=== PATIENT | female | born 1950 | race Two or more races ===

== ENCOUNTER 2023-02-11 20:58 | Inpatient (IN) | payer OTHER ==
[~2023-02-11] VITALS: Ht 162.6 cm; Wt 121.6 kg
[2023-02-11 22:53] LABS: HEMATOCRIT 25.6 % (31.2-41.9); MEAN CORPUSCULAR HEMOGLOBIN 21.9 uug (24.7-32.8); PLATELET COUNT (AUTO) 290 K/uL (179-408)
[2023-02-11] MEDS ORDERED: ONDANSETRON ODT 4 MG TAB.RAPDIS SL ONE (23:00)
[2023-02-11] MEDS ORDERED: HYDROCODONE/APAP 10-325 MG TABLET PO ONE (23:00)
[2023-02-11] MEDS ORDERED: HYDROCODONE/APAP 10-325 MG TABLET ONE (23:02)
[2023-02-11] MEDS ORDERED: ONDANSETRON ODT 4 MG TAB.RAPDIS ONE (23:02)
[2023-02-11 23:03] LABS: CARBON DIOXIDE 30 mmol/L (21-32); CHLORIDE 112 mmol/L (98-107); CREATININE 2.2 mg/dL (0.6-1.3); GLUCOSE 110 mg/dL (74-106); POTASSIUM 5.3 mmol/L (3.5-5.1); UREA NITROGEN, BLOOD 28 mg/dL (7-18)
[2023-02-11] MEDS ORDERED: levoFLOXacin 750MG/D5W 150 ML IV ONE (23:10)
[2023-02-11] MEDS ORDERED: levoFLOXacin 750 MG/D5W 150 ML PIGGYBACK IV ONE (23:15)
[2023-02-11 23:17] LABS: ALANINE AMINOTRANSFERASE 13 U/L (14-59); ALKALINE PHOSPHATASE 128 U/L (50-136); ASPARTATE AMINOTRANSFERASE 5 U/L (15-37); BILIRUBIN,DIRECT 0.1 mg/dL (0.0-0.2); BILIRUBIN,TOTAL 0.3 mg/dL (0.2-1.0)
--- NOTE | 2023-02-11 23:19 | NUR ---
[facility] [place] [facility] as requested by Dr Larios. Waiting ofmakenna Leung MD to call back
[2023-02-11] MEDS ORDERED: ASPIRIN 81 MG TAB.CHEW PO ONE (23:45)
[2023-02-11] MEDS ORDERED: FUROSEMIDE 40 MG/4 ML VIAL IV ONE (23:45)
[2023-02-11] MEDS ORDERED: NITROGLYCERIN OINT 1 GM PACKET TP ONE (23:45)
[2023-02-11] MEDS ORDERED: FUROSEMIDE 40 MG/4 ML VIAL ONE (23:50)
[2023-02-11] MEDS ORDERED: ASPIRIN 81 MG TAB.CHEW ONE (23:50)
--- NOTE | 2023-02-11 23:50 | NUR ---
Patient was placed on BIPAP by RT as ordered by Dr Larios with Rate of 20, 15/5 and 100% of 02 as setting.
[2023-02-11] MEDS ORDERED: ENOXAPARIN SODIUM 60 MG/0.6 ML DISP.SYRIN SQ ONE (23:53)
[2023-02-12] VITALS (26 sets, daily range): BP systolic 90–120; BP diastolic 43–69; TEMP 97.5–98.6; O2SAT 92–100
[2023-02-12] MEDS ORDERED: ENOXAPARIN SODIUM 100 MG/ML DISP.SYRIN SQ ONE
[2023-02-12 00:20] LABS: *OCCULT BLOOD STOOL NEGATIVE (NEGATIVE)
[2023-02-12] MEDS ORDERED: ROSU20TA2 PO (01:10)
[2023-02-12] MEDS ORDERED: insulin nph SUBCUT ×2 (01:10)
[2023-02-12] MEDS ORDERED: ZESTRIL PO (01:10)
[2023-02-12] MEDS ORDERED: FAMO40TA7 PO (01:10)
[2023-02-12] MEDS ORDERED: CINA30TA2 PO (01:10)
[2023-02-12] MEDS ORDERED: AMLO2.5T4 PO (01:10)
[2023-02-12] MEDS ORDERED: PRINIVIL PO (01:10)
[2023-02-12] MEDS ORDERED: CINA90TA PO (01:10)
[2023-02-12] MEDS ORDERED: MAGNESIUM HYDROXIDE 30 ML LIQUID UDC PO PRN (01:30)
[2023-02-12] MEDS ORDERED: DEXTROSE 50% 50 ML DISP.SYRIN IV PRN (01:30)
[2023-02-12] MEDS ORDERED: ONDANSETRON 4 MG/2 ML VIAL IV PRN (01:30)
[2023-02-12] MEDS ORDERED: REMEDY ESSENTIAL ZINC PASTE 113 GM TP PRN (01:30)
[2023-02-12] MEDS ORDERED: ACETAMINOPHEN 325 MG TABLET PO PRN (01:30)
[2023-02-12] MEDS ORDERED: BUMETANIDE 1 MG/4 ML VIAL ONE (01:41)
[2023-02-12] MEDS ORDERED: NITROGLYCERIN OINT 1 GM PACKET TP ONE ×2 (01:41→01:45)
[2023-02-12] MEDS ORDERED: BUMETANIDE 1 MG/4 ML VIAL IV ONE (01:45)
--- NOTE | 2023-02-12 01:52 | NUR ---
Gave SBAR report to Vaishali ICU nurse.
--- NOTE | 2023-02-12 03:00 | NUR ---
Pt is noted sleeping as report is received from the STAMP REDEMPTION CLERK that , Pt came from home with C/O SOB, Generalizer weakness and TailBone pain and Diagnose off Respiratory Failure and PNA with history off HLD, DM, CHF, HTN , SOB with 02 Dependent at Home at 4Liters Nasal Cannula, CKD, Morbid Obesity and S/P Released from [facility] days ago. Sinus Rhythm , on BiPAP setting 20, 20/5, FI02 100%, Skin areas noted, Generalizer Edema and 18Fr Mueller Cath noted. Pt care continue as she is due for Pulm consult in AM while monitor closely for any S/S off distress or change in conditions during the shift.
--- NOTE | 2023-02-12 03:40 | NUR ---
Note karenone in EDM - 02/12/23 at 0420 by [email or web address] PT A,A AND O X 4 WITH NO C/O PAIN AND NAD OBSERVED.Patient discharged to home in stable condition. Written and verbal after care instructions given. Patient verbalizes understanding of instructions. Stressed follow up or return to ER for worsening s/s. PT AMB OUT WITH STEADY GAIT.
--- NOTE | 2023-02-12 04:30 | NUR ---
Pt is off to CT with RN and RT beside . Pt care continue.
--- NOTE | 2023-02-12 04:55 | NUR ---
Pt is back from CT as she continue with BiPAP therapy and AM care done. Pt care continue.
[2023-02-12] MEDS: BLOOD SUGAR DIAGNOSTIC 1 EACH STRIP VI SCH ×4 (06:50→21:08)
--- NOTE | 2023-02-12 07:27 | NUR ---
Pt care continue as report is given to the AM receiving nurse.
--- NOTE | 2023-02-12 07:30 | NUR ---
Pt seen and examined by Dr Soto. c/o right hip pain. Per pt has not fallen recently, repositioned and medicated with Tylenol, hip xray ordered.
[2023-02-12 07:39] LABS: ABG BASE EXCESS -5.5 mmol/L; ABG BASE EXCESS -6.4 mmol/L; ABG HCO3 23.2 mmol/L; ABG HCO3 23.5 mmol/L; ABG PCO2 66.1 mmHg (35.0-45.0); ABG PH 7.097 (7.350-7.450); ABG PH 7.163 (7.350-7.450); ABG PO2 229.6 mmHg (75.0-100.0); ABG PO2 52.1 mmHg (75.0-100.0); ABG SITE LEFT RADIAL; ABG SITE RIGHT RADIAL; ABG TOTAL HEMOGLOBIN 8.2 G/dL (12.0-16.0); ABG TOTAL HEMOGLOBIN 8.4 G/dL (12.0-16.0); COHb 1.4 % (0.5-1.5); MetHb 0.2 % (0.0-1.5); O2Hb 79.2 % (94.0-97.0); O2Hb 97.9 % (94.0-97.0); VENT MODE BIPAP; VENT MODE Nasal Cannula
[2023-02-12 07:39] LABS: ABG HCO3 21.8 mmol/L; ABG PH 7.137 (7.350-7.450); ABG PO2 264.9 mmHg (75.0-100.0); ABG SITE LEFT RADIAL; ABG TOTAL HEMOGLOBIN 7.5 G/dL (12.0-16.0); COHb 1.3 % (0.5-1.5); MetHb 0.3 % (0.0-1.5); O2Hb 98.2 % (94.0-97.0); VENT MODE BIPAP
--- NOTE | 2023-02-12 07:42 | NUR ---
0730 Received report from ирина BAEZ. pt lying in bed with eyes closed, awakes easily, orineted x3, MAEx4. VSS see full assessment, ABG pending on 100% O2.
--- NOTE | 2023-02-12 07:52 | NUR ---
ABG results with adequete p)2, Fio2 decreased to 50% per RT.
[2023-02-12] MEDS ORDERED: ACETAMINOPHEN 325 MG TABLET ONE (07:55)
[2023-02-12] MEDS ORDERED: FAMOTIDINE 20 MG TABLET ONE (08:33)
[2023-02-12] MEDS ORDERED: FUROSEMIDE 40 MG/4 ML VIAL ONE (08:34)
[2023-02-12] MEDS: FAMOTIDINE 20 MG TABLET PO SCH (08:36)
[2023-02-12] MEDS: FUROSEMIDE 40 MG/4 ML VIAL IV SCH ×2 (08:37→20:52)
[2023-02-12] MEDS ORDERED: FAMOTIDINE 20 MG TABLET PO ONE (09:00)
[2023-02-12] MEDS ORDERED: CINACALCET HCL 30 MG TABLET PO SCH (09:00)
[2023-02-12] MEDS ORDERED: AMLODIPINE 2.5 MG TABLET PO SCH (09:00)
[2023-02-12 09:13] LABS: *BILIRUBIN,URIN NEGATIVE (NEGATIVE); *BLOOD, URINE 3+ (NEGATIVE); *CLARITY,URINE CLOUDY (CLEAR); *COLOR,URINE YELLOW (YELLOW); *KETONES,URINE NEGATIVE (NEGATIVE); *UROBILINOGEN,URINE 0.2 E.U./dl (NORMAL); LEUKOCYTE ESTERASE ,URINE TRACE (NEGATIVE); NITRITE, URINE NEGATIVE (NEGATIVE); PH,URINE 5.5 (5.0-8.0); UGLUCOSE NEGATIVE (NEGATIVE)
[2023-02-12 09:20] LABS: *CREATININE,URINE 75.6 mg/dL (30-125); *URINE TOTAL PROTEIN RANDOM 175.9 mg/dL (<150/24HR)
[2023-02-12] MEDS ORDERED: LISI40TA13 PO (09:36)
[2023-02-12] MEDS ORDERED: INSU100V28 SQ (09:38)
[2023-02-12] MEDS ORDERED: CINACALCET HCL 30 MG TABLET PO ONE (10:00)
--- NOTE | 2023-02-12 10:00 | NUR ---
Pt seen and examined by Dr Gil
[2023-02-12 10:03] LABS: BACTERIA,URINE MODERATE /HPF (NONE SEEN); COARSE GRANULAR CASTS,URINE 0-3 /LPF; RBC,URINE 50-80 /HPF (0-3); SQUAMOUS EPITHELIAL CELL,UR FEW /HPF (NONE SEEN)
--- NOTE | 2023-02-12 10:45 | NUR ---
Pt seen and examined by Dr Bobo. Received order for pain medication for right hip pain and am labs redrawn. Pt presently on 3LNC and receiving respiratory trreatment.
[2023-02-12] MEDS ORDERED: ALBUTEROL SULFATE 2.5 MG/3 ML NEBU ONE ×2 (10:54→15:45)
[2023-02-12] MEDS ORDERED: IPRATROPIUM BROMIDE 0.5 MG/2.5 ML NEBU ONE ×2 (10:54→15:45)
[2023-02-12] MEDS: IPRATROPIUM BROMIDE 0.5 MG/2.5 ML NEBU NEB SCH ×3 (11:00→20:18)
[2023-02-12] MEDS: ALBUTEROL SULFATE 2.5 MG/3 ML NEBU NEB SCH ×3 (11:00→20:18)
--- NOTE | 2023-02-12 11:30 | NUR ---
Remains on 3LNC, respirations even and unlabored, maintaining saturation 100%. Report given via phone to Madhu ELLIS
[2023-02-12] MEDS ORDERED: HYDROCODONE/APAP 5-325MG TABLET ONE (11:34)
[2023-02-12] MEDS: HYDROCODONE/APAP 5-325MG TABLET PO PRN ×2 (11:35→19:32)
[2023-02-12 11:48] LABS: MEAN CORPUSCULAR HEMOGLOBIN 22.6 uug (24.7-32.8); MEAN CORPUSCULAR VOLUME 77.5 fL (75.5-95.3); PLATELET COUNT (AUTO) 255 K/uL (179-408)
[2023-02-12 11:49] LABS: CARBON DIOXIDE 28 mmol/L (21-32); CHLORIDE 112 mmol/L (98-107); CREATININE 2.2 mg/dL (0.6-1.3); GLUCOSE 85 mg/dL (74-106); POTASSIUM 5.7 mmol/L (3.5-5.1); UREA NITROGEN, BLOOD 28 mg/dL (7-18)
[2023-02-12 11:51] LABS: IRON, SERUM 19 ug/dL (50-175)
[2023-02-12 11:55] LABS: ALANINE AMINOTRANSFERASE 16 U/L (14-59); ALKALINE PHOSPHATASE 119 U/L (50-136); ASPARTATE AMINOTRANSFERASE 12 U/L (15-37); BILIRUBIN,TOTAL 0.4 mg/dL (0.2-1.0); CHOLESTEROL 124 mg/dL (<200); HDL CHOLESTEROL 55 mg/dL (40-60); MAGNESIUM 1.7 mg/dL (1.8-2.4); PHOSPHOROUS 3.5 mg/dL (2.5-4.9); TOTAL PROTEIN, SERUM 5.7 g/dL (6.4-8.2); TRIGLYCERIDES 109 MG/DL (30-150)
--- NOTE | 2023-02-12 12:00 | NUR ---
VSS, blood sugar 78 prior to meal, ate 100% of lunch.
--- NOTE | 2023-02-12 12:03 | NUR ---
Received critical lab results, Hgb 7.0 gm/dl previous value 7.3 gm/dl. VSS. No active signs of bleeding
[2023-02-12 12:37] LABS: CREATINE KINASE, TOTAL 28 U/L (26-192)
--- NOTE | 2023-02-12 13:30 | NUR ---
Pt c/o nausea with small emesis, given Zofran IV
[2023-02-12] MEDS ORDERED: ONDANSETRON 4 MG/2 ML VIAL ONE (13:33)
--- NOTE | 2023-02-12 14:30 | NUR ---
pt resting comfortalby, no further nausea, pain relieved right hip, sleeping on/off with stable VS
--- NOTE | 2023-02-12 16:30 | NUR ---
Pt c/o vertigo with position changes, son at bedside stating this is frequent.occurance. per pt relieved by sitting with head elevated. Blood glucose 123. Echocardiogram completed.
--- NOTE | 2023-02-12 17:38 | NUR ---
Pt seen and examined by Dr Sky, repeat labs reviewed. No further orders at this time.
--- NOTE | 2023-02-12 18:57 | NUR ---
1830 Pt transferred to CCU RM 1 via bed. VSS, family in to visit.
--- NOTE | 2023-02-12 19:09 | NUR ---
Report given to Priya Mauro.
--- NOTE | 2023-02-12 19:10 | NUR ---
Pt is noted in bed alert, responsive with call light in reach and fall precautions in place as report is received from the off going Nurse. Sinus Rhythm on the Tele monitor , Diminished Lungs sound with 02 3Liters Nasal Cannula now as she was S/P BiPAP therapy with skin dry, warm but skin areas noted, please see skin assessment in chart and Mueller Cath 18Rf. noted in placed. Pt care continue with pain Management in progress PO [place] and Antibiotic IVPB therapy in progress while monitor closely for any S/S off distress or change in conditions during the shift.
--- NOTE | 2023-02-12 19:35 | NUR ---
[place] 5mg PO given for Buttock pain 10/. Pt care continue as pain will be reassessed while monitor closely.
--- NOTE | 2023-02-12 20:34 | NUR ---
Pt care continue as [place] 5mg PO is noted effective with pain now 0/10.
[2023-02-12] MEDS: ENOXAPARIN SODIUM 40 MG/0.4 ML DISP.SYRIN SQ SCH (20:54)
[2023-02-12] MEDS ORDERED: ENOXAPARIN SODIUM 120 MG/0.8 ML SYRINGE SQ SCH (21:00)
--- NOTE | 2023-02-12 21:09 | NUR ---
Pt care continue as she refused 3units Insulin Regular per sliding scale for Blood Glucose off 169.
[2023-02-12] MEDS ORDERED: levoFLOXacin 500 MG/D5W 500 MG in PREMIXED 1 EACH IV SCH (23:00)
[2023-02-13] VITALS (26 sets, daily range): BP systolic 93–186; BP diastolic 39–131; TEMP 95–98.9; O2SAT 71–100
[2023-02-13] MEDS ORDERED: ENOXAPARIN SODIUM 120 MG/0.8 ML SYRINGE SQ SCH
[2023-02-13] MEDS ORDERED: levoFLOXacin 250MG /D5W 50 ML IV ONE (00:33)
[2023-02-13] MEDS: LEVOFLOXACIN/D5W 250 MG in PREMIX 1 EA IV SCH ×2 (00:40→21:14)
--- NOTE | 2023-02-13 01:30 | NUR ---
Pt remain full code with 02 at 3Liters Nasal Cannula therapy in progress with call light in reach and fall precautions in place. Pt care continue as she is been turn and reposition Q2HRS for comfort during the shift while monitor.
[2023-02-13] MEDS: HYDROCODONE/APAP 5-325MG TABLET PO PRN (01:58)
--- NOTE | 2023-02-13 04:43 | NUR ---
Pt is sleeping as AM care done with Mueller Cath in place and [place] 5mg PO noted effective. Pt care continue with [address] in [address].
[2023-02-13 05:11] LABS: HEMATOCRIT 25.5 % (31.2-41.9); MEAN CORPUSCULAR HEMOGLOBIN 22.4 uug (24.7-32.8); MEAN CORPUSCULAR VOLUME 78.8 fL (75.5-95.3); PLATELET COUNT (AUTO) 268 K/uL (179-408)
[2023-02-13 05:34] LABS: ALANINE AMINOTRANSFERASE 14 U/L (14-59); ALKALINE PHOSPHATASE 125 U/L (50-136); ASPARTATE AMINOTRANSFERASE 8 U/L (15-37); BILIRUBIN,TOTAL 0.3 mg/dL (0.2-1.0); CARBON DIOXIDE 29 mmol/L (21-32); CHLORIDE 109 mmol/L (98-107); CREATININE 2.7 mg/dL (0.6-1.3); GLUCOSE 178 mg/dL (74-106); MAGNESIUM 1.7 mg/dL (1.8-2.4); PHOSPHOROUS 4.5 mg/dL (2.5-4.9); POTASSIUM 5.8 mmol/L (3.5-5.1); TOTAL PROTEIN, SERUM 5.9 g/dL (6.4-8.2); UREA NITROGEN, BLOOD 31 mg/dL (7-18)
--- NOTE | 2023-02-13 07:27 | NUR ---
Pt care continue as report is given to the AM receiving nurse.
[2023-02-13] MEDS: BLOOD SUGAR DIAGNOSTIC 1 EACH STRIP VI SCH ×4 (07:30→21:22)
[2023-02-13] MEDS ORDERED: SODIUM POLYSTYRENE SULFONATE 15 G/60 ML LIQUID UDC PO ONE (08:15)
--- NOTE | 2023-02-13 08:30 | NUR ---
Pt lying with eyes closed, awakes to loud verbal and tactile stimuli, oriented to person, lethargic, VSS sPO2 96% on simple mask, ABG drawn and pending.
[2023-02-13] MEDS: ALBUTEROL SULFATE 2.5 MG/3 ML NEBU NEB SCH ×4 (08:35→21:44)
[2023-02-13] MEDS: IPRATROPIUM BROMIDE 0.5 MG/2.5 ML NEBU NEB SCH ×4 (08:35→21:43)
[2023-02-13] MEDS: INSULIN REGULAR, HUMAN 300 UNIT/3 ML VIAL SQ PRN ×2 (08:36→16:28)
[2023-02-13] MEDS: FUROSEMIDE 40 MG/4 ML VIAL IV SCH ×2 (08:37→21:15)
[2023-02-13] MEDS: CINACALCET HCL 30 MG TABLET PO SCH (08:38)
[2023-02-13] MEDS: FAMOTIDINE 20 MG TABLET PO SCH (08:38)
--- NOTE | 2023-02-13 09:00 | NUR ---
Placed back on BIPAP or elevated CO2 levels per RT.
--- NOTE | 2023-02-13 09:30 | NUR ---
pt level LOC improved on BIPAP, awakes to vo9ice and and speaking in short sentences. BIPAP setting adjusted per RT Fi02 28% BIPAO 20/5 rate 20., saturation 98%.
--- NOTE | 2023-02-13 09:45 | NUR ---
Pt seen and examined by Dr. Gil, notified of changes in repiratory assessment and critical ABG results
[2023-02-13 10:00] LABS: ABG BASE EXCESS -3.9 mmol/L; ABG HCO3 26.8 mmol/L; ABG PCO2 94.7 mmHg (35.0-45.0); ABG PH 7.069 (7.350-7.450); ABG PO2 75.1 mmHg (75.0-100.0); ABG SITE RIGHT RADIAL; ABG TOTAL HEMOGLOBIN 8.1 G/dL (12.0-16.0); COHb 1.7 % (0.5-1.5); MetHb 0.3 % (0.0-1.5); O2Hb 91.2 % (94.0-97.0); VENT MODE Mask - Venturi
--- NOTE | 2023-02-13 10:15 | NUR ---
Pt seen and examined by second baller, photos of sacrum documented. Addendum: 02/13/23 at 1052 by CHELSEA YIN RN Disregard wound care note, not for this patient
--- NOTE | 2023-02-13 11:15 | NUR ---
Pt c/o feeling cold, shivering, skin cool and dry, Robb hugger warming blanket applied.
[2023-02-13] MEDS: SODIUM CITRATE/CITRIC ACID (500/334MG/5ML) UDC 30 ML SOLUTION PO SCH ×4 (11:48→21:14)
[2023-02-13 12:12] LABS: ABG BASE EXCESS -3.6 mmol/L; ABG HCO3 23.7 mmol/L; ABG PCO2 55.9 mmHg (35.0-45.0); ABG PH 7.245 (7.350-7.450); ABG PO2 67.6 mmHg (75.0-100.0); ABG SITE RIGHT RADIAL; ABG TOTAL HEMOGLOBIN 7.8 G/dL (12.0-16.0); COHb 1.6 % (0.5-1.5); MetHb 0.3 % (0.0-1.5); O2Hb 91.7 % (94.0-97.0); VENT MODE BIPAP
--- NOTE | 2023-02-13 12:45 | NUR ---
Pt c/o nausea with small emesis. medicated with Zofran 4 mg IV. Daughter Mary visiting updated on pts condition
[2023-02-13] MEDS ORDERED: MAGNESIUM SULFATE/D5W 100 ML IV SCH (13:00)
--- NOTE | 2023-02-13 14:00 | NUR ---
Left FA HL leaking, not patent d/c'd. New 20g HL inserted right FA. BP cuff moved to right leg.
--- NOTE | 2023-02-13 15:00 | NUR ---
Pt with another emesis 120cc, appears to be kaexylate given earlier. No further po given at this time
--- NOTE | 2023-02-13 15:15 | NUR ---
Dr Adair notified of pts emesis and inability to maintain po, oral meds held at this time.
[2023-02-13 17:05] LABS: CARBON DIOXIDE 30 mmol/L (21-32); CHLORIDE 110 mmol/L (98-107); CREATININE 2.6 mg/dL (0.6-1.3); GLUCOSE 152 mg/dL (74-106); POTASSIUM 5.3 mmol/L (3.5-5.1); UREA NITROGEN, BLOOD 34 mg/dL (7-18)
--- NOTE | 2023-02-13 18:00 | NUR ---
VSS, oxygenation maintained on BIPAP, anxious at times, calms with vertbal rreassurance. See full assessment. daughter at bedside throught the afternoon
--- NOTE | 2023-02-13 19:10 | NUR ---
Pt is noted in bed alert, responsive with call light in reach and fall precautions in place as report is received from the off going Nurse. Sinus Rhythm on the Tele monitor , Coarse Lungs sound with BiPAP Therapy with setting FI02 28%, 20/5 and 20 with skin dry, warm but skin areas noted, please see skin assessment in chart and Mueller Cath 18Rf. noted in placed. Pt care continue with pain Management PO [place] and Antibiotic IVPB therapy in progress while monitor closely for any S/S off distress or change in conditions during the shift.
[2023-02-13] MEDS: ENOXAPARIN SODIUM 40 MG/0.4 ML DISP.SYRIN SQ SCH (21:16)
[2023-02-14] VITALS (32 sets, daily range): BP systolic 84–167; BP diastolic 36–117; TEMP 97.9–98.6; O2SAT 93–100
--- NOTE | 2023-02-14 00:16 | NUR ---
Pt remain full code with BiPAP therapy in progress as call light in reach and fall precautions in place. Pt care continue as she is been turn and reposition Q2HRS for comfort during the shift while monitor.
[2023-02-14 04:59] LABS: MEAN CORPUSCULAR HEMOGLOBIN 22.5 uug (24.7-32.8)
[2023-02-14 05:00] LABS: HEMATOCRIT 21.9 % (31.2-41.9); MEAN CORPUSCULAR VOLUME 74.7 fL (75.5-95.3); PLATELET COUNT (AUTO) 215 K/uL (179-408)
--- NOTE | 2023-02-14 05:00 | NUR ---
Pt is sleeping as AM care done with Mueller Cath as Pt care continue BiPAP therapy in progress.
[2023-02-14 05:20] LABS: CARBON DIOXIDE 30 mmol/L (21-32); CHLORIDE 109 mmol/L (98-107); CREATININE 2.6 mg/dL (0.6-1.3); GLUCOSE 128 mg/dL (74-106); MAGNESIUM 1.5 mg/dL (1.8-2.4); UREA NITROGEN, BLOOD 34 mg/dL (7-18)
--- NOTE | 2023-02-14 06:21 | NUR ---
LAB CALLED WITH H/H OFF 6.6/21.9 AND CODING SPECIALIST JA NOTIFY WITH 1UNIT OFF PRBC ORDERED. PT CARE CONTINUE.
[2023-02-14] MEDS: BLOOD SUGAR DIAGNOSTIC 1 EACH STRIP VI SCH ×4 (06:54→20:27)
--- NOTE | 2023-02-14 07:30 | NUR ---
Pt care continue as report is given to the AM receiving nurse.
[2023-02-14] MEDS: ALBUTEROL SULFATE 2.5 MG/3 ML NEBU NEB SCH ×4 (08:00→19:30)
[2023-02-14] MEDS: IPRATROPIUM BROMIDE 0.5 MG/2.5 ML NEBU NEB SCH ×4 (08:00→19:30)
[2023-02-14 08:28] LABS: ABG BASE EXCESS 4.4 mmol/L; ABG HCO3 30.6 mmol/L; ABG PCO2 56.3 mmHg (35.0-45.0); ABG PH 7.353 (7.350-7.450); ABG SITE RIGHT RADIAL; ABG TOTAL HEMOGLOBIN 7.6 G/dL (12.0-16.0); COHb 1.4 % (0.5-1.5); MetHb 0.1 % (0.0-1.5); VENT MODE BIPAP
[2023-02-14] MEDS: MAGNESIUM SULFATE/D5W 100 ML IV SCH ×5 (08:45→16:16)
[2023-02-14] MEDS: FUROSEMIDE 40 MG/4 ML VIAL IV SCH ×2 (09:12→20:24)
[2023-02-14] MEDS: FAMOTIDINE 20 MG TABLET PO SCH (09:12)
[2023-02-14] MEDS: SODIUM CITRATE/CITRIC ACID (500/334MG/5ML) UDC 30 ML SOLUTION PO SCH ×4 (09:12→20:24)
[2023-02-14] MEDS: CINACALCET HCL 30 MG TABLET PO SCH (10:46)
[2023-02-14] MEDS: HYDROCODONE/APAP 5-325MG TABLET PO PRN (11:42)
[2023-02-14 12:07] LABS: ALBUMIN 2.8 g/dL (2.9-4.4); ALPHA-1-GLOBULIN 0.2 g/dL (0.0-0.4); ALPHA-2-GLOBULIN 0.7 g/dL (0.4-1.0); BETA GLOBULIN 1.1 g/dL (0.7-1.3); GAMMA GLOBULIN 0.7 g/dL (0.4-1.8); GLOBULIN, TOTAL 2.8 g/dL (2.2-3.9); M-SPIKE Not Observed g/dL (Not Observed)
[2023-02-14 14:37] LABS: ABG BASE EXCESS 2.9 mmol/L; ABG HCO3 29.5 mmol/L; ABG PCO2 56.8 mmHg (35.0-45.0); ABG PH 7.333 (7.350-7.450); ABG PO2 82.2 mmHg (75.0-100.0); ABG SITE RIGHT RADIAL; ABG TOTAL HEMOGLOBIN 8.6 G/dL (12.0-16.0); COHb 1.4 % (0.5-1.5); MetHb 0.1 % (0.0-1.5); O2Hb 94.3 % (94.0-97.0); VENT MODE Nasal Cannula
[2023-02-14 15:37] LABS: HEMATOCRIT 25.9 % (31.2-41.9)
[2023-02-14] MEDS ORDERED: ACET325T53 PO (17:48)
[2023-02-14] MEDS ORDERED: MENT113O TP (17:48)
[2023-02-14] MEDS ORDERED: INSU100V28 SQ (17:48)
[2023-02-14] MEDS ORDERED: IPRA0.2S6 NEB (17:48)
[2023-02-14] MEDS ORDERED: ONDA4VIA23 IV (17:48)
[2023-02-14] MEDS ORDERED: Citric Acid/Sodium Citrate PO (17:48)
[2023-02-14] MEDS ORDERED: Blood Sugar Diagnostic VI (17:48)
[2023-02-14] MEDS ORDERED: FURO100P5 IV (17:48)
[2023-02-14] MEDS ORDERED: ALBU2.5V7 NEB (17:48)
[2023-02-14] MEDS ORDERED: DEXT50DI8 IV (17:48)
[2023-02-14] MEDS ORDERED: PANT40TA2 PO (17:48)
[2023-02-14] MEDS ORDERED: LEVO250P3 IV (17:48)
--- NOTE | 2023-02-14 19:05 | NUR ---
Pt is noted in bed , alert, responsive with call light in reach and fall precautions in place as report is received from the off going Nurse. Sinus Rhythm on the Tele monitor , Diminished Lungs sound with 02 3Liters Nasal Cannula with skin dry, warm but skin areas noted, please see skin assessment in chart and Mueller Cath 18Rf. noted in placed. Pt care continue with pain Management PO [place] and Antibiotic IVPB therapy in progress while monitor closely for any S/S off distress or change in conditions during the shift and she is due to be transferred out to [facility] , Room [address]ppard and ETA is 1999 and will called report at [phone].
[2023-02-14] MEDS: LEVOFLOXACIN/D5W 250 MG in PREMIX 1 EA IV SCH (20:24)
[2023-02-14] MEDS: INSULIN REGULAR, HUMAN 300 UNIT/3 ML VIAL SQ PRN (20:26)
--- NOTE | 2023-02-14 21:03 | NUR ---
Pt is noted off the unit to [facility] with [facility] staff to [facility] unit ROOM 5117 under the care off DR. Sheppard and Report is given to SASHA Lazcano at [phone].
== END 2023-02-14 21:00 | disposition short-term general hospital (02) | DRG 189 ==
LOC: ER 20:58 → TRANSITION 02-12 01:10 → CCU 02-12 17:57
PROVIDERS: ADMIT Nurse Practitioner Acute Care; ATTEND Internal Medicine
PROC: 5A09457 Assistance with Respiratory Ventilation, 24-96 Consecutive Hours, Continuous Positive Airway Pressure (ICD-10-PCS; principal; 2023-02-12)
PROC: 30233N1 Transfusion of Nonautologous Red Blood Cells into Peripheral Vein, Percutaneous Approach (ICD-10-PCS; 2023-02-14)
DX: J96.21 Acute and chronic respiratory failure with hypoxia (principal); E43 Unspecified severe protein-calorie malnutrition; J18.9 Pneumonia, unspecified organism; N17.0 Acute kidney failure with tubular necrosis; I50.33 Acute on chronic diastolic (congestive) heart failure; I13.0 Hypertensive heart and chronic kidney disease with heart failure and stage 1 through stage 4 chronic kidney disease, or unspecified chronic kidney disease; J44.0 Chronic obstructive pulmonary disease with (acute) lower respiratory infection; E66.2 Morbid (severe) obesity with alveolar hypoventilation; Z68.42 Body mass index [BMI] 45.0-49.9, adult; D68.69 Other thrombophilia; J44.1 Chronic obstructive pulmonary disease with (acute) exacerbation; J90 Pleural effusion, not elsewhere classified; I31.39 Other pericardial effusion (noninflammatory); E87.29 Other acidosis; N25.81 Secondary hyperparathyroidism of renal origin; J96.22 Acute and chronic respiratory failure with hypercapnia; D50.9 Iron deficiency anemia, unspecified; E78.5 Hyperlipidemia, unspecified; E83.52 Hypercalcemia; E87.5 Hyperkalemia; E83.42 Hypomagnesemia; F17.210 Nicotine dependence, cigarettes, uncomplicated; M85.80 Other specified disorders of bone density and structure, unspecified site; Z20.822 Contact with and (suspected) exposure to COVID-19; Z74.09 Other reduced mobility; D64.9 Anemia, unspecified; R77.8 Other specified abnormalities of plasma proteins; K21.9 Gastro-esophageal reflux disease without esophagitis; N18.32 Chronic kidney disease, stage 3b; Z87.440 Personal history of urinary (tract) infections; Z87.442 Personal history of urinary calculi; Z96.651 Presence of right artificial knee joint; E11.22 Type 2 diabetes mellitus with diabetic chronic kidney disease; Z99.81 Dependence on supplemental oxygen; N25.0 Renal osteodystrophy; E88.09 Other disorders of plasma-protein metabolism, not elsewhere classified; I27.20 Pulmonary hypertension, unspecified; Z88.2 Allergy status to sulfonamides
CPT/HCPCS: 36415; 36600; 71045; 71250; 73502; 76770; 82803; 83550; 83605; 83735; 83970; 84100; 84155; 84165; 84300; 84443; 84484; 85018; 85025; 85730; 86140; 86850; 86900; 86901; 86920; 87040; 93005; 93307; 94640; 94660; 94664; A4663; A6209; G0378; J1650; J1815; J1940; J1956; J2405; J3475; J3490; J3590; P9016; Q0162